=== PATIENT | female | born 1960 | race Caucasian/White ===

== ENCOUNTER 2017-07-24 19:34 | Emergency (ER) | payer BC ==
[~2017-07-24] VITALS: Ht 170.2 cm; Wt 88.5 kg
[2017-07-24] MEDS ORDERED: TETANUS/DIPHTHERIA TOX ADULT 0.5 ML SYR IM ONE (19:45)
[2017-07-24] MEDS ORDERED: LIDOCAINE HCL 1% LOCAL INJ 20 ML VIAL INJ ONE (19:45)
== END 2017-07-24 20:24 | disposition home or self-care (01) ==
LOC: ER 19:34
DX: S61.212A Laceration without foreign body of right middle finger without damage to nail, initial encounter (principal); W45.8XXA Other foreign body or object entering through skin, initial encounter; Y92.008 Other place in unspecified non-institutional (private) residence as the place of occurrence of the external cause
CPT/HCPCS: 12001; 90471; 90714; 99284; J2001